=== PATIENT | female | born 2000 | race Hispanic/Latino ===

== ENCOUNTER 2019-04-22 06:39 | Emergency (ER) | payer SELFPAY ==
[~2019-04-22] VITALS: Ht 152.4 cm; Wt 54.5 kg
[2019-04-22] MEDS ORDERED: IBUPROFEN 800 MG TAB PO ONE (07:00)
[2019-04-22] MEDS ORDERED: ONDANSETRON 4 MG ORAL DISINTEGRATING TAB (Q0162 PER 1MG) PO ONE (07:00)
[2019-04-22 07:08] LABS: URINE PREG TEST NEGATIVE (NEGATIVE)
[2019-04-22] MEDS ORDERED: NS 1,000 ML IV ONE (07:15)
[2019-04-22 07:35] LABS: BASO % 0.2 % (0.0-1.0); EOS % 0.1 % (0.0-3.0); HEMATOCRIT 35.6 % (36.0-47.0); HEMOGLOBIN 11.7 g/dl (12.0-15.5); LYMPH # 0.4 10^3/uL (1.5-6.5); LYMPH % 3.6 % (24.0-44.0); MEAN CORPUSCULAR HEMOGLOBIN 29.1 pg (27.0-33.0); MEAN CORPUSCULAR HGB CONC 32.9 g/dl (32.0-36.5); MEAN CORPUSCULAR VOLUME 88.6 fl (80.0-96.0); MONO # 0.6 10^3/uL (0.0-0.8); MONO % 6.3 % (0.0-5.0); NEUTROPHILS # 8.7 10^3/uL (1.8-7.7); NEUTROPHILS % 89.4 % (36.0-66.0); PLATELET COUNT, AUTOMATED 278 10^3/uL (150-450); RED BLOOD COUNT 4.02 10^6/uL (4.00-5.40); WHITE BLOOD COUNT 9.7 10^3/uL (4.0-10.0)
[2019-04-22 07:59] LABS: ALBUMIN 3.4 GM/DL (3.2-5.2); ALT/SGPT 16 U/L (12-78); AMYLASE 57 U/L (25-115); BILIRUBIN,DIRECT 0.2 MG/DL (0.0-0.2); BILIRUBIN,TOTAL 0.9 MG/DL (0.2-1.0); BLOOD UREA NITROGEN 14 MG/DL (7-18); CALCIUM LEVEL 7.9 MG/DL (8.5-10.1); CARBON DIOXIDE LEVEL 24 MEQ/L (21-32); CHLORIDE LEVEL 104 MEQ/L (98-107); CREATININE FOR GFR 0.89 MG/DL (0.55-1.30); GLOMERULAR FILTRATION RATE > 60.0 (>60); GLUCOSE, FASTING 136 MG/DL (70-100); LIPASE 58 U/L (73-393); POTASSIUM SERUM 3.7 MEQ/L (3.5-5.1); SODIUM LEVEL 139 MEQ/L (136-145); TOTAL PROTEIN 6.8 GM/DL (6.4-8.2)
[2019-04-22] MEDS ORDERED: ISOVUE-370 76% 100ML VIAL (Q9967) As Ordered ONE (08:01)
--- NOTE | 2019-04-22 09:02 | REP ---
CT ABDOMEN AND PELVIS WITH CONTRAST: HISTORY: Mid and lower abdominal pain. CONTRAST: Isovue 370 100 mL. The liver, gallbladder, pancreas, spleen, adrenal glands and left kidney are normal in appearance. There is marked dilatation of the right renal collecting system and right ureter to the S1-2 level. The right ureter is not seen distal to this level. There is no nephrocalcinosis. There are no definite ureteral calculi. The urinary bladder and uterus are normal in appearance. The bony structure is intact. IMPRESSION: There is marked dilatation of the right renal collecting system and right ureter to the level of the S1-2 vertebral body. The right ureter is not seen distal to this level. There is no nephrocalcinosis or definite ureteral calculus. Electronically Signed by Chon Dey MD 04/22/2019 09:06 A
[2019-04-22] MEDS ORDERED: CIPR-249 PO (09:27)
[2019-04-22] MEDS ORDERED: CIPROFLOXACIN 500 MG TAB PO ONE (09:30)
[2019-04-22 09:31] VITALS: BP 98/55
--- NOTE | 2019-04-24 12:39 | ED PDOC ---
Post-Departure Follow-Up [facility] faxed formal report of ct abd/p for fu Muna Light MD Apr 24, 2019 12:39
== END 2019-04-22 09:35 | disposition home or self-care (01) ==
LOC: M ED 06:39
DX: N13.30 Unspecified hydronephrosis (principal); R50.9 Fever, unspecified; Z88.0 Allergy status to penicillin
CPT/HCPCS: 74177; 80048; 80076; 81001; 82150; 83690; 84703; 85025; 87088; 87186; 96360; 99284; Q0162; Q9967

== ENCOUNTER 2019-05-29 14:00 | Emergency (ER) | payer SELFPAY ==
[~2019-05-29] VITALS: Ht 152.4 cm; Wt 50.4 kg
[~2019-05-29 14:00] MED LIST: CIPR-249 PO
[2019-05-29] MEDS ORDERED: ONDANSETRON 4 MG ORAL DISINTEGRATING TAB (Q0162 PER 1MG) PO ONE (16:00)
[2019-05-29] MEDS ORDERED: ACETAMINOPHEN 500 MG TAB PO ONE (16:00)
[2019-05-29 17:23] VITALS: BP 100/57
== END 2019-05-29 17:24 | disposition home or self-care (01) ==
LOC: M ED 14:00
DX: Z32.01 Encounter for pregnancy test, result positive (principal); G43.909 Migraine, unspecified, not intractable, without status migrainosus; R11.2 Nausea with vomiting, unspecified; F32.9 Major depressive disorder, single episode, unspecified; F41.9 Anxiety disorder, unspecified; Z88.0 Allergy status to penicillin
CPT/HCPCS: 84702; 87880; 99284; Q0162

== ENCOUNTER 2019-06-03 02:04 | Emergency (ER) | payer OTHER, SELFPAY ==
[~2019-06-03] VITALS: Ht 162.6 cm; Wt 50.6 kg
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
[2019-06-03 06:00] VITALS: BP 107/58
== END 2019-06-03 06:17 | disposition home or self-care (01) ==
LOC: M ED 02:04
DX: O9A.211 Injury, poisoning and certain other consequences of external causes complicating pregnancy, first trimester (principal); S09.93XA Unspecified injury of face, initial encounter; V47.6XXA Car passenger injured in collision with fixed or stationary object in traffic accident, initial encounter; Y92.410 Unspecified street and highway as the place of occurrence of the external cause; O28.3 Abnormal ultrasonic finding on antenatal screening of mother; Z3A.01 Less than 8 weeks gestation of pregnancy; Z88.0 Allergy status to penicillin

== ENCOUNTER → 2019-07-31 | Outpatient (CLI) | payer OTHER, MEDICAID ==
[2019-07-31 20:41] LABS: BASO % 0.5 % (0.0-1.0); EOS # 0.1 10^3/uL (0.0-0.5); EOS % 1.7 % (0.0-3.0); HEMATOCRIT 37.9 % (36.0-47.0); HEMOGLOBIN 12.7 g/dl (12.0-15.5); LYMPH # 1.4 10^3/uL (1.5-5.0); LYMPH % 17.2 % (24.0-44.0); MEAN CORPUSCULAR HEMOGLOBIN 30.3 pg (27.0-33.0); MEAN CORPUSCULAR HGB CONC 33.5 g/dl (32.0-36.5); MEAN CORPUSCULAR VOLUME 90.5 fl (80.0-96.0); MONO # 0.3 10^3/uL (0.0-0.8); MONO % 3.7 % (0.0-5.0); NEUTROPHILS # 6.2 10^3/uL (1.5-8.5); NEUTROPHILS % 76.4 % (36.0-66.0); PLATELET COUNT, AUTOMATED 253 10^3/uL (150-450); RED BLOOD COUNT 4.19 10^6/uL (4.00-5.40); WHITE BLOOD COUNT 8.1 10^3/uL (4.0-10.0)
[2019-07-31 22:26] LABS: CHLAMYDIA DNA AMPLIFICATION NEGATIVE (NEGATIVE); GC DNA AMPLIFICATION NEGATIVE (NEGATIVE)
[2019-08-01 10:05] LABS: HIV 1&2 SCREEN CENTAUR NEGATIVE (NEGATIVE); RUBELLA IgG QUALITATIVE IMMUNE (IMMUNE)
== END ==
LOC: M SMT 15:22
PROVIDERS: ATTEND Obstetrics & Gynecology
DX: Z36.89 Encounter for other specified antenatal screening (principal)

== ENCOUNTER → 2019-12-13 | Outpatient (CLI) | payer OTHER ==
[~2019-12-13] MED LIST changes: +MACR100C43 PO
[2019-12-13 12:49] LABS: HEMATOCRIT 28.9 % (36.0-47.0); MEAN CORPUSCULAR HEMOGLOBIN 26.6 pg (27.0-33.0); MEAN CORPUSCULAR HGB CONC 31.1 g/dl (32.0-36.5); MEAN CORPUSCULAR VOLUME 85.5 fl (80.0-96.0); PLATELET COUNT, AUTOMATED 231 10^3/uL (150-450); RED BLOOD COUNT 3.38 10^6/uL (4.00-5.40)
== END ==
LOC: M LAB 11:10
PROVIDERS: ATTEND Obstetrics & Gynecology
DX: Z34.83 Encounter for supervision of other normal pregnancy, third trimester (principal)

== ENCOUNTER 2019-12-17 20:40 | Outpatient (CLI) | payer OTHER ==
[~2019-12-17 20:40] MED LIST changes: -MACR100C43 PO
[2019-12-17 21:40] LABS: APPEARANCE, URINE CLOUDY (CLEAR); BACTERIA, URINE AUTO 3+ (NEGATIVE); BILIRUBIN, URINE AUTO NEGATIVE (NEGATIVE); BLOOD, URINE BLOOD NEGATIVE (NEGATIVE); CALCIUM OXALATE CRYSTALS SMALL; COLOR, URINE YELLOW (YELLOW); GLUCOSE, URINE (UA) AUTO NEGATIVE (NEGATIVE); KETONE, URINE AUTO NEGATIVE (NEGATIVE); LEUKOCYTE ESTERASE, URINE AUTO 1+ (NEGATIVE); MUCUS, URINE LARGE (NEGATIVE); NITRITE, URINE AUTO POSITIVE (NEGATIVE); PROTEIN, URINE AUTO NEGATIVE (NEGATIVE); RBC, URINE AUTO 5 /HPF (0-3); RENAL EPITHELIAL CELLS 1 /HPF; SPECIFIC GRAVITY URINE AUTO 1.016 (1.002-1.035); SQUAMOUS EPITHELIAL CELL UR AU 14 /HPF (0-6); WBC, URINE AUTO 20 /HPF (0-3)
[2019-12-17] MEDS ORDERED: NITROFURANTOIN (MACROBID) 100 MG CAP PO ONE (22:00)
[2019-12-17] MEDS ORDERED: MACR100C43 PO (22:33)
== END 2019-12-17 23:50 | disposition home or self-care (01) ==
LOC: M LDO 20:40
PROVIDERS: ATTEND Obstetrics & Gynecology
DX: O23.43 Unspecified infection of urinary tract in pregnancy, third trimester (principal); O99.89 Other specified diseases and conditions complicating pregnancy, childbirth and the puerperium; R10.9 Unspecified abdominal pain; Z88.0 Allergy status to penicillin; Z3A.34 34 weeks gestation of pregnancy

== ENCOUNTER → 2019-12-27 | Outpatient (CLI) | payer OTHER ==
[~2019-12-27] MED LIST changes: +MACR100C43 PO
== END ==
LOC: M LAB 08:42
PROVIDERS: ATTEND Obstetrics & Gynecology
DX: Z34.83 Encounter for supervision of other normal pregnancy, third trimester (principal)

== ENCOUNTER 2020-01-03 02:56 | Outpatient (CLI) | payer OTHER ==
[~2020-01-03] VITALS: Ht 152.4 cm; Wt 61.2 kg
[2020-01-03] MEDS ORDERED: LR 1,000 ML IV SCH (03:15)
[2020-01-03] MEDS ORDERED: LR 1,000 ML IV ONE (03:15)
[2020-01-03 07:15] VITALS: BP 110/51
[2020-01-03 08:23] LABS: APPEARANCE, URINE CLEAR (CLEAR); BACTERIA, URINE AUTO 1+ (NEGATIVE); BILIRUBIN, URINE AUTO NEGATIVE (NEGATIVE); BLOOD, URINE BLOOD 1+ (NEGATIVE); COLOR, URINE STRAW (YELLOW); GLUCOSE, URINE (UA) AUTO NEGATIVE (NEGATIVE); KETONE, URINE AUTO NEGATIVE (NEGATIVE); LEUKOCYTE ESTERASE, URINE AUTO 3+ (NEGATIVE); NITRITE, URINE AUTO NEGATIVE (NEGATIVE); PROTEIN, URINE AUTO NEGATIVE (NEGATIVE); RBC, URINE AUTO 1 /HPF (0-3); SPECIFIC GRAVITY URINE AUTO 1.003 (1.002-1.035); SQUAMOUS EPITHELIAL CELL UR AU 2 /HPF (0-6); UROBILINOGEN, URINE AUTO 0.2 mg/dL (0.0-2.0); WBC, URINE AUTO 41 /HPF (0-3)
[2020-01-03] MEDS ORDERED: MACR100C43 PO (08:42)
[2020-01-03] MEDS ORDERED: NITROFURANTOIN (MACROBID) 100 MG CAP PO ONE (08:45)
== END 2020-01-03 08:51 | disposition home or self-care (01) ==
LOC: M LDO 02:56
PROVIDERS: ATTEND Obstetrics & Gynecology
DX: O26.893 Other specified pregnancy related conditions, third trimester (principal); M54.5 Low back pain; O23.43 Unspecified infection of urinary tract in pregnancy, third trimester; Z3A.37 37 weeks gestation of pregnancy

== ENCOUNTER → 2020-01-09 | Outpatient (CLI) | payer OTHER ==
--- NOTE | 2020-01-09 16:09 | REP ---
OB ULTRASOUND: Real-time sonographic evaluation of the gravid uterus performed. There is a single living intrauterine gestation. The estimated gestational age is 38 weeks 0 days, EDC 01/23/2020. Today's measurements indicate appropriate growth. BPD 91 mm = 37 weeks 0 days, 36th percentile HC 329 mm = 39 weeks 0 days, 66th percentile AC 344 mm = 38 weeks 2 days, 54th percentile FL 70 mm = 35 weeks 5 days, 16th percentile HC/AC ratio 0.99, within normal range. Estimated weight 3262 grams, 52nd percentile. heart rate 150 beats per minute. Amniotic fluid within normal limits, FREDI 17.2, within normal range of 7.3 to 23.9. S/D ratio 2.18, within normal range of 1.6 to 2.6. RI 0.54, below normal range of 0.59 to 0.75. Visualized anatomy today includes the lateral ventricles, posterior fossa, upper lip, stomach, three vessel cord, kidneys and bladder which are all grossly unremarkable. position vertex. Placenta anterior and grade 3 with no previa or abruption. Cervix is closed and measures 5.7 cm in length. Electronically Signed by Blaine Fischer MD 01/10/2020 10:30 A
== END ==
LOC: M RAD 12:30
PROVIDERS: ATTEND Obstetrics & Gynecology
DX: O99.89 Other specified diseases and conditions complicating pregnancy, childbirth and the puerperium (principal)

== ENCOUNTER 2020-01-17 04:19 | Inpatient (IN) | payer OTHER ==
[2020-01-17] VITALS (10 sets, daily range): BP systolic 98–118; BP diastolic 54–70
[~2020-01-17] VITALS: Ht 152.4 cm; Wt 67.1 kg
[~2020-01-17 04:19] MED LIST changes: +PRENTAB53 PO
[2020-01-17] MEDS ORDERED: LR 1,000 ML IV SCH ×2 (04:54→09:00)
[2020-01-17] MEDS ORDERED: LACTATED RINGER'S 1000 ML IV STA (04:54)
[2020-01-17] MEDS ORDERED: BICITRA 30ML SOLN UDC PO ONE (05:00)
[2020-01-17] MEDS ORDERED: ceFAZolin SOD 2 GM in IV 1 EA IV ONE (05:00)
[2020-01-17 05:11] LABS: HEMOGLOBIN 8.6 g/dl (12.0-15.5); MEAN CORPUSCULAR HEMOGLOBIN 25.2 pg (27.0-33.0); MEAN CORPUSCULAR HGB CONC 30.7 g/dl (32.0-36.5); MEAN CORPUSCULAR VOLUME 82.1 fl (80.0-96.0); PLATELET COUNT, AUTOMATED 255 10^3/uL (150-450); RED BLOOD COUNT 3.41 10^6/uL (4.00-5.40); WHITE BLOOD COUNT 9.2 10^3/uL (4.0-10.0)
[2020-01-17] MEDS ORDERED: CLINDAMYCIN 900 MG in IV 1 EA IV ONE (06:30)
[2020-01-17] MEDS ORDERED: dexameTHASONE 4 MG/ML 1ML VIAL (J1100) As Ordered ONE ×2 (07:15→07:17)
[2020-01-17] MEDS ORDERED: ONDANSETRON 4MG/2ML VIAL (J2405) As Ordered ONE ×2 (07:16→07:17)
[2020-01-17] MEDS ORDERED: MORPHINE PRES-FREE INJ 10 MG/10 ML VIAL (J2274) As Ordered ONE (07:21)
[2020-01-17] MEDS ORDERED: MOM 30ML SUSPENSION UDC PO PRN (07:30)
[2020-01-17] MEDS ORDERED: ONDANSETRON 4 MG TAB (S0181) PO PRN (07:30)
[2020-01-17] MEDS ORDERED: IBUPROFEN 600 MG TAB PO PRN (07:30)
[2020-01-17] MEDS ORDERED: PERCOCET PO (07:31)
[2020-01-17] MEDS ORDERED: diphenhydrAMINE INJ 50MG/ML VIAL (J1200) IV PRN (07:52)
[2020-01-17] MEDS ORDERED: NALOXONE INJ 0.4 MG/1 ML VIAL (J2310) IV PRN ×2 (07:52)
[2020-01-17] MEDS ORDERED: METOCLOPRAMIDE INJ 10MG/2ML VIAL (J2765) IV PRN ×2 (07:52→09:00)
[2020-01-17] MEDS ORDERED: ONDANSETRON 4MG/2ML VIAL (J2405) IV PRN ×2 (07:52→09:00)
[2020-01-17] MEDS ORDERED: NALBUPHINE HCL 10 MG/ML AMP (J2300) IV PRN (07:52)
[2020-01-17] MEDS ORDERED: MEASLES,MUMPS,RUBELLA VACCINE INJ (MMR-II) (90707) SC SCH (08:00)
[2020-01-17] MEDS ORDERED: RHOGAM 300 MCG (1500 IU) INJ (J2790) IM SCH (08:00)
[2020-01-17] MEDS ORDERED: OXYTOCIN DRIP 30 UNITS in IV 1 EA IV SCH (08:00)
[2020-01-17] MEDS ORDERED: OXYTOCIN 30 UNITS IN 0.9% NaCl 500ML IV BAG (J2590) As Ordered ONE (08:14)
[2020-01-17] MEDS ORDERED: propofoL 200 MG/20 ML VIAL As Ordered ONE (08:19)
[2020-01-17] MEDS ORDERED: PHENYLephrine HCL 500 MCG/5 ML (100MCG/ML) SYRINGE (J2370) As Ordered ONE (08:19)
[2020-01-17] MEDS ORDERED: MIDAZOLAM INJ 2 MG/2 ML VIAL (J2250) As Ordered ONE (08:23)
[2020-01-17 08:35] LABS: CORD GAS ABE V -3.4; CORD GAS HCO3 V 21.7 MEQ/L; CORD GAS PCO2 V 39.7 mmHg; CORD GAS PH V 7.356 UNITS; CORD GAS PO2 V 55.8 mmHg; CORD GAS SBC V 21.6 MEQ/L; CORD GAS TCO2 V 22.9 MEQ/L
[2020-01-17 08:37] LABS: CORD GAS ABE A -3.4; CORD GAS HCO3 A 23.8 MEQ/L; CORD GAS O2 SAT A 55.4 %; CORD GAS PCO2 A 51.3 mmHg; CORD GAS PH A 7.285 UNITS; CORD GAS PO2 A 24.3 mmHg; CORD GAS SBC A 20.6 MEQ/L; CORD GAS TCO2 A 25.4 MEQ/L
[2020-01-17] MEDS: PRENATAL VITAMINS CHEWABLE TABLET PO SCH (09:00)
[2020-01-17] MEDS ORDERED: PERCOCET 5MG/325MG TAB PO PRN (09:00)
[2020-01-17] MEDS: DOCUSATE SODIUM 100 MG CAP PO SCH ×2 (09:00→21:00)
[2020-01-17] MEDS ORDERED: fentaNYL 100 MCG/2 ML INJECTION (J3010) As Ordered ONE (09:41)
[2020-01-17] MEDS: fentaNYL 100 MCG/2 ML INJECTION (J3010) IV PRN ×3 (09:43→09:59)
[2020-01-17] MEDS ORDERED: LR 300 ML IV ONE (14:15)
[2020-01-17 14:36] LABS: HEMATOCRIT 25.6 % (36.0-47.0); HEMOGLOBIN 7.9 g/dl (12.0-15.5); MEAN CORPUSCULAR HEMOGLOBIN 25.3 pg (27.0-33.0); MEAN CORPUSCULAR HGB CONC 30.9 g/dl (32.0-36.5); MEAN CORPUSCULAR VOLUME 82.1 fl (80.0-96.0); PLATELET COUNT, AUTOMATED 225 10^3/uL (150-450); RED BLOOD COUNT 3.12 10^6/uL (4.00-5.40); WHITE BLOOD COUNT 17.8 10^3/uL (4.0-10.0)
[2020-01-18 02:00] VITALS: BP 113/57
[2020-01-18] MEDS: IBUPROFEN 800 MG TAB PO PRN ×3 (02:21→19:03)
[2020-01-18 05:53] VITALS: BP 103/56
[2020-01-18 06:59] LABS: HEMATOCRIT 23.2 % (36.0-47.0); HEMOGLOBIN 7.1 g/dl (12.0-15.5); MEAN CORPUSCULAR HGB CONC 30.6 g/dl (32.0-36.5); MEAN CORPUSCULAR VOLUME 81.7 fl (80.0-96.0); PLATELET COUNT, AUTOMATED 216 10^3/uL (150-450); RED BLOOD COUNT 2.84 10^6/uL (4.00-5.40); WHITE BLOOD COUNT 13.2 10^3/uL (4.0-10.0)
[2020-01-18] MEDS ORDERED: ADACEL/BOOSTRIX VACCINE (DIPHTH/PERTUSS/ACELL/TETANUS)0.5ML SYR (90715) IM ONE (09:00)
[2020-01-18] MEDS ORDERED: INFLUENZA QUADRIVALENT PF VACCINE 0.5ML SYRINGE (90686) IM ONE (09:00)
[2020-01-18] MEDS: DOCUSATE SODIUM 100 MG CAP PO SCH ×2 (10:14→19:59)
[2020-01-18] MEDS: PRENATAL VITAMINS CHEWABLE TABLET PO SCH (10:14)
[2020-01-18 10:34] VITALS: BP 96/52
[2020-01-18 14:23] VITALS: BP 104/53
--- NOTE | 2020-01-18 15:12 | RO ---
DATE OF PROCEDURE: 01/17/2020 Kaylen is a 19-year-old female 2, para 1-0-0-1 with a history of prior section, who is being admitted for an elective repeat section. PREOPERATIVE DIAGNOSIS: Term for elective repeat section. POSTOPERATIVE DIAGNOSES: 1. Term for elective repeat section. 2. Nuchal cord times one. PROCEDURE: 1. Repeat section. 2. Revision of old scar. ANESTHESIA: Spinal. SURGEON: Dr. Juarez GOLD WHEEL BLOCKER AND POLISHER: Dr. Pires COMPLICATIONS: None. ESTIMATED BLOOD LOSS: 600 mL. FINDINGS: Live female infant in occiput transverse position with nuchal cord times one. scores of 9 and 9. weight 7 pounds 4 ounces. Placenta delivered manually intact. Three-vessel cord. Normal-appearing tubes and ovaries. PROCEDURE: After obtaining informed consent, the patient was taken to the operating room where spinal anesthetic was found to be adequate. She was then draped and prepped in the usual sterile fashion in the supine position. With the help of my resident assistant cna, Dr. Pires, an elliptical incision was made over the old scar. The old scar was removed. The incision was carried down to the fascia. Fascia was incised in midline fashion and carried through laterally. Superior aspect of the fascia was then grasped with Angelica clamps, tented off and dissected off the rectus muscles sharply. The inferior aspect was dissected off in a similar fashion. Rectus muscles in a midline fashion. Perineum identified. Perineal cavity entered bluntly. Superior and inferior dissection of the peritoneum was then done with good visualization of bladder. At this point, a Mobius skin retractor was placed. A low-transverse uterine incision was made. Infant was delivered in atraumatic fashion. The nuchal cord was reduced. Cord doubly clamped and cut. The was handed over to the waiting warmer. Cord blood and cord gas were sent. Placenta removed manually. Uterus cleared of all clot and debris and the uterine incision was then repaired in two separate layers of 0 Vicryl sutures. All superficial bleeders were coagulated. Pelvis copiously irrigated with normal saline and suctioned out. Attention turned to the peritoneum, which was closed in a running fashion using 2-0 Vicryl. Fascia closed in two separate segment of 0 Vicryl sutures. All superficial bleeders coagulated and the skin was reapproximated in subcuticular fashion using 3-0 Vicryl on a Mukesh. Steri-Strips placed. The patient tolerated procedure well. She was then transferred to recovery room in stable condition.
[2020-01-18 17:52] VITALS: BP 110/52
[2020-01-18] MEDS: PERCOCET 5MG/325MG TAB PO PRN (21:59)
[2020-01-18 22:00] VITALS: BP 102/51
[2020-01-19 02:00] VITALS: BP 101/50
[2020-01-19 06:00] VITALS: BP 115/64
[2020-01-19] MEDS: PERCOCET 5MG/325MG TAB PO PRN (06:50)
--- NOTE | 2020-01-19 07:03 | DS.PDOC ---
Discharge Summary General Date of Admission Jan 17, 2020 at 04:19 Date of Discharge Jan 19, 2020 Discharge Summary PROCEDURES PERFORMED DURING STAY: Repeat section ADMITTING DIAGNOSES: 1. Prior section 2. Poor reproductive history DISCHARGE DIAGNOSES: 1. Repeat at term. COMPLICATIONS/CHIEF COMPLAINT: Term , Elective Repeat C[place] Section. HISTORY OF PRESENT ILLNESS: 19yo G2 now P2001 pt of [facility]. Admitted 01/17/2020 for repeat at term. HOSPITAL COURSE: Out of bed independently. Tolerating regular diet. Adequate pain management with oral medications. Voiding and passing flatus. DISCHARGE MEDICATIONS: Please see below. ALLERGIES: Please see below. PHYSICAL EXAMINATION ON DISCHARGE: VITAL SIGNS: Please see below. GENERAL: NAD HEENT: WNL NECK: Supple CARDIOVASCULAR EXAMINATION: HRR, normotensive RESPIRATORY EXAMINATION: Clear, unlabored ABDOMINAL EXAMINATION: Fundus firm. Wound well approximated without s/s infection. Steristrips intact EXTREMITIES: Equal strength and motion SKIN: Intact NEUROLOGICAL EXAMINATION: Grossly intact PSYCHIATRIC EXAMINATION: Appropriate LABORATORY DATA: Please see below. PROGNOSIS: Good ACTIVITY: As tolerated. DIET: As tolerate DISCHARGE PLAN: Home DISPOSITION: Home today . DISCHARGE INSTRUCTIONS: 1. Routine precautions. Pelvic rest. Rx ibuprofen and percocet. RTO 2wks and 6 wks DISCHARGE CONDITION: Stable Vital Signs/I&Os Vital Signs Date Time Temp Pulse Resp B/P (MAP) Pulse Ox O2 Delivery O2 Flow Rate FiO2 01/19/20 06:50 18 01/19/20 06:00 99.0 96 115/64 (81) 99 Room Air Discharge Medications Scheduled Vit,Calc76/Iron/Folic (Prenatabs Rx Tablet) 1 Each Tablet, 1 TAB PO DAILY, (Reported) Scheduled PRN Oxycodone/Acetaminophen (Oxycodone-Acetaminophen 5-325) 1 Each Tablet, 1 TAB PO Q4H PRN for MILD/MODERATE PAIN (PS 1-7) Allergies Coded Allergies: Penicillins (Verified Allergy, Severe, anaphylaxis, 01/16/20) aspirin (Verified Allergy, Severe, stopped breathing, 01/16/20) Keri Yeboah CNM Jan 19, 2020 07:03
[2020-01-19] MEDS: PRENATAL VITAMINS CHEWABLE TABLET PO SCH (08:03)
[2020-01-19] MEDS: DOCUSATE SODIUM 100 MG CAP PO SCH (08:03)
[2020-01-19] MEDS: IBUPROFEN 800 MG TAB PO PRN (09:20)
== END 2020-01-19 13:45 | disposition home or self-care (01) | DRG 540 ==
LOC: M LDI 04:19 → M OBS 10:41
PROVIDERS: ADMIT Obstetrics & Gynecology; ATTEND Obstetrics & Gynecology
PROC: 10D00Z1 Extraction of Products of Conception, Low, Open Approach (ICD-10-PCS; principal; 2020-01-17 07:30)
DX: O34.211 Maternal care for low transverse scar from previous cesarean delivery (principal); Z3A.39 39 weeks gestation of pregnancy; Z37.0 Single live birth